=== PATIENT | female | born 1945 | race Caucasian/White ===

== ENCOUNTER 2018-07-22 11:16 | Emergency (ER) | payer MEDICARE, OTHER ==
[~2018-07-22] VITALS: Ht 160 cm; Wt 113.4 kg
[~2018-07-22 11:16] MED LIST: NORCO 7.5-3251 EACH PO
== END 2018-07-22 11:41 | disposition home or self-care (01) ==
LOC: ED 11:16
DX: M79.602 Pain in left arm (principal); W18.30XA Fall on same level, unspecified, initial encounter; Y92.098 Other place in other non-institutional residence as the place of occurrence of the external cause

== ENCOUNTER 2020-04-14 09:04 | Emergency (ER) | payer MEDICARE, OTHER ==
[~2020-04-14] VITALS: Ht 160 cm; Wt 113.4 kg
[2020-04-14] MEDS ORDERED: XARELTO10 MG PO (09:16)
== END 2020-04-14 11:00 | disposition home or self-care (01) ==
LOC: ED 09:04
DX: I87.2 Venous insufficiency (chronic) (peripheral) (principal); Z87.891 Personal history of nicotine dependence; Z88.5 Allergy status to narcotic agent
CPT/HCPCS: 73590; 93971; 99284-25